=== PATIENT | male | born 2000 | race Caucasian/White ===

== ENCOUNTER 2023-07-03 18:41 | Emergency (ER) | payer OTHER, SELFPAY ==
[2023-07-03 18:57] VITALS: BP 138/85; PULSE 136; RESP 20; TEMP 39.1; O2SAT 100
--- NOTE | 2023-07-03 19:09 | ED.URI ---
HPI - URI/Sore Throat General Chief Complaint: Upper Respiratory Infection Stated Complaint: Sinus Time Seen by Provider: 07/03/23 19:15 Source: patient and RN notes reviewed Mode of arrival: ambulatory Limitations: no limitations History of Present Illness HPI Narrative: 22-year-old male presents with concern for fever, cough, headache, chills, body aches, fever. He reports symptoms started late Monday night. 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 MD elicited complaint: fever Related Data Home Medications Medication Instructions Recorded Confirmed amlodipine 5 mg tablet mg 07/03/23 atorvastatin 40 mg tablet mg 07/03/23 buspirone 15 mg tablet mg 07/03/23 carvedilol 3.125 mg tablet mg 07/03/23 clindamycin 1 %-benzoyl peroxide 5 topical 07/03/23 % topical gel cyanocobalamin (vitamin B-12) mcg 07/03/23 1,000 mcg tablet doxycycline hyclate 100 mg tablet mg 07/03/23 empagliflozin 25 mg tablet mg 07/03/23 (Jardiance) losartan 100 mg tablet mg 07/03/23 metformin 500 mg tablet mg 07/03/23 nortriptyline 75 mg capsule mg 07/03/23 tretinoin 0.025 % topical gel topical 07/03/23 Allergies Allergy/AdvReac Type Severity Reaction Status Date / Time No Known Allergies Allergy Verified 07/03/23 19:03 Review of Systems Review of Systems: CONSTITUTIONAL: Reports malaise, chills, sweats, or fever. EYES: Denies visual changes, redness, or discharge. ENT: Denies rhinorrhea, congestion, sinus pain, otalgia and sore throat. CARDIOVASCULAR: Denies chest pain, palpitations, or edema. RESPIRATORY: Reports cough, feeling of dyspnea. GASTROINTESTINAL: Denies abdominal pain, nausea, vomiting, diarrhea SKIN: Denies rash or itching. MUSCULOSKELETAL: Reports myalgia. NEUROLOGIC: Reports headache. All systems reviewed & are unremarkable except as noted in HPI and below PMFSH Comments At time of signature, agree with nursing past medical, surgical, social and family history. There is no relevant family history pertinent to the presenting complaint Exam Narrative: GENERAL: Nontoxic-appearing and in no acute distress. HEAD: Normocephalic EYES: PERRLA, conjunctivae clear ENT: Nares clear. Mucous membranes moist. TM pearly eckert with dull light reflex bilaterally; no tragal tenderness. Oropharynx not erythematous without lesions. Tonsils not enlarged and without exudate, no drooling, no hoarseness, no trismus, uvula midline. NECK: Supple. No lymphadenopathy CHEST: Clear to auscultation, breath sounds equal. No wheezing, rhonchi, rales, or stridor. No respiratory distress, speaks in full sentences. HEART: Regular rate and rhythm. No murmur heard. SKIN: Warm, dry, no rash. NEURO: Alert and oriented x3. PSYCH: Normal mood and affect Course Course Emergency Course: Patient is aware of diagnosis, understands and agrees to treatment plan. Anticipatory guidance given. Patient agrees to follow-up as directed and is aware of reasons to seek care at the emergency department. Portions of this record may have been created with voice recognition software Level of Care: Express Care Visit Vital Signs Vital signs: Vital Signs Temperature 102.3 F H 07/03/23 18:57 Pulse Rate 136 H 07/03/23 18:57 Respiratory Rate 20 07/03/23 18:57 Blood Pressure 138/85 07/03/23 18:57 Pulse Oximetry 100 07/03/23 18:57 Oxygen Delivery Room Air 07/03/23 18:57 Temperature 102.3 F H 07/03/23 18:57 Pulse Rate 136 H 07/03/23 18:57 Respiratory Rate 20 07/03/23 18:57 Blood Pressure 138/85 07/03/23 18:57 Pulse Oximetry 100 07/03/23 18:57 Oxygen Delivery Room Air 07/03/23 18:57 Reviewed. MDM - URI/Sore Throat MDM Narrative Medical decision making narrative: Differential diagnosis considered: Gomez virus, strep pharyngitis, allergic rhinitis, upper respiratory tract infection, sinusitis, rhinosinusitis, nasopharyngitis. viral pharyngitis, otitis me
== END 2023-07-03 19:16 | disposition home or self-care (01) ==
PROVIDERS: Emergency Provider Nurse Practitioner
DX: J10.1 Influenza due to other identified influenza virus with other respiratory manifestations (principal); Z79.899 Other long term (current) drug therapy; Z79.84 Long term (current) use of oral hypoglycemic drugs; Z20.822 Contact with and (suspected) exposure to COVID-19
CPT/HCPCS: 87081; 87426; 87804; 87880; 99213; C9803; G0463

== ENCOUNTER 2023-07-08 11:11 | Emergency (ER) | payer OTHER, SELFPAY ==
--- NOTE | 2023-07-08 11:13 | ED.EAR ---
HPI - Ear Problem General Chief complaint: Ear Stated complaint: Left Ear Irritation Time Seen by Provider: 07/08/23 11:31 Source: patient and RN notes reviewed Mode of arrival: ambulatory Limitations: no limitations History of Present Illness HPI Narrative: 22-year-old male presents with concern for left ear pain and bleeding. He reports he was cleaning his ear with a Q-tip last night when he felt pain and then began having bleeding and pressure. MD Complaint: ear pain Related Data Home Medications Medication Instructions Recorded Confirmed amlodipine 5 mg tablet mg 07/03/23 atorvastatin 40 mg tablet mg 07/03/23 buspirone 15 mg tablet mg 07/03/23 carvedilol 3.125 mg tablet mg 07/03/23 clindamycin 1 %-benzoyl peroxide 5 topical 07/03/23 % topical gel cyanocobalamin (vitamin B-12) mcg 07/03/23 1,000 mcg tablet doxycycline hyclate 100 mg tablet mg 07/03/23 empagliflozin 25 mg tablet mg 07/03/23 (Jardiance) losartan 100 mg tablet mg 07/03/23 metformin 500 mg tablet mg 07/03/23 nortriptyline 75 mg capsule mg 07/03/23 tretinoin 0.025 % topical gel topical 07/03/23 Allergies Allergy/AdvReac Type Severity Reaction Status Date / Time No Known Allergies Allergy Verified 07/08/23 11:26 Review of Systems Review of Systems: CONSTITUTIONAL: Denies malaise, chills, sweats, or fever. EYES: Denies visual changes, redness, or discharge. ENT: Denies rhinorrhea, congestion, sinus pain, and sore throat. Reports left ear bleeding and pressure CARDIOVASCULAR: Denies chest pain, palpitations, or edema. RESPIRATORY: Denies cough. Denies dyspnea. GASTROINTESTINAL: Denies abdominal pain, nausea, vomiting, diarrhea SKIN: Denies rash or itching. MUSCULOSKELETAL: Denies myalgia. NEUROLOGIC: Denies headache. All systems reviewed & are unremarkable except as noted in HPI and below PMFSH Comments At time of signature, agree with nursing past medical, surgical, social and family history. There is no relevant family history pertinent to the presenting complaint Exam Narrative: GENERAL: Well-appearing, well-nourished, and in no acute distress. HEAD: Normocephalic EYES: PERRLA, conjunctivae clear ENT: Nares clear. Mucous membranes moist. Right TM not visible due to excess cerumen. Left TM ruptured with bleeding noted, no active bleeding currently; no tragal tenderness. NECK: Supple. No lymphadenopathy CHEST: No respiratory distress, speaks in full sentences. HEART: Regular rate and rhythm. No murmur heard. SKIN: Warm, dry, no rash. NEURO: Alert and oriented x3. PSYCH: Normal mood and affect Course Course Emergency Course: Patient is aware of diagnosis, understands and agrees to treatment plan. Anticipatory guidance given. Patient agrees to follow-up as directed and is aware of reasons to seek care at the emergency department. Portions of this record may have been created with voice recognition software Level of Care: Express Care Visit Vital Signs Vital signs: Reviewed. Medical Decision Making MDM Narrative Medical decision making narrative: Differential diagnosis considered: Gomez virus, strep pharyngitis, allergic rhinitis, upper respiratory tract infection, sinusitis, rhinosinusitis, nasopharyngitis. viral pharyngitis, otitis media, otitis externa, otitis effusion, cerumen impaction, foreign body. Exam findings show no acute concerns or changes; patient is non-toxic appearing and is in no distress. Patient is appropriate for outpatient treatment and follow-up. Critical Care Time Critical Care Time Critical Care Time: No Discharge Plan Discharge Clinical Impression: Rupture of left tympanic membrane Patient Disposition: Home, Self-Care Condition: Stable Instructions: Antibiotic Form, Ruptured Eardrum (ED) Additional Instructions: 1) Please follow-up with your primary care doctor in the next 3-5 days. 2) If you have any urgent concerns please go to the ER. 3) Please take medica
[2023-07-08 11:20] VITALS: BP 139/85; PULSE 104; RESP 14; TEMP 36.2; O2SAT 100
== END 2023-07-08 11:40 | disposition home or self-care (01) ==
PROVIDERS: Emergency Provider Nurse Practitioner
DX: H72.92 Unspecified perforation of tympanic membrane, left ear (principal)
CPT/HCPCS: 99213; G0463